=== PATIENT | male | born 1970 | race Caucasian/White ===

== ENCOUNTER 2017-09-06 11:05 | Emergency (ER) | payer OTHER ==
[~2017-09-06] VITALS: Ht 175.3 cm; Wt 79.8 kg
[~2017-09-06 11:05] MED LIST: ADD/10 PO; EFFSR75 PO; LTHSR/300 PO; OXCA600T PO
[2017-09-06 11:06] VITALS: Ht 175.3 cm; Wt 79.8 kg
[2017-09-06] MEDS ORDERED: MoRPHine SULFATE 10 MG/ML CARP/VIAL IV STA (11:50)
[2017-09-06] MEDS ORDERED: DIPHTHERIA/TETANUS/PERTUSSIS 0.5 ML SYR/VIAL IM. ONE (12:00)
[2017-09-06] MEDS ORDERED: CEFTRIAXONE SOD INJ 1 GM ADDVIAL IV STA (12:04)
[2017-09-06 12:15] LABS: BASO % 0.2 %; BASO ABS # 0.02 K/uL (0-0.2); EOS % 0.7 %; EOS ABS # 0.08 K/uL (0-0.5); HEMATOCRIT 41.2 % (42-52); HEMOGLOBIN 15.1 g/dL (14.0-18.0); IG# 0.03 K/uL (0.00-0.02); LYMPH % 22.8 %; LYMPH ABS # 2.51 K/uL (1.2-3.4); MEAN CELL VOLUME 94.1 fL (80-100); MEAN CORPUSCULAR HEMOGLOBIN 34.5 pg (25-34); MEAN CORPUSCULAR HGB CONC 36.7 g/dl (32-36); MEAN PLATELET VOLUME 9.4 fL (7.4-10.4); MONO % 8.9 %; MONO ABS # 0.98 K/uL (0.11-0.59); NEUT % 67.1 %; NEUT ABS # 7.39 K/uL (1.4-6.5); PLATELET COUNT 217 K/uL (130-400); RED CELL DISTRIBUTION WIDTH CV 12.4 % (11.5-14.5); RED CELL DISTRIBUTION WIDTH SD 42.3 fL (36.4-46.3); WHITE BLOOD COUNT 11.01 K/uL (4.8-10.8)
--- NOTE | 2017-09-06 12:18 | DIAGNOSTIC IMAGING REPORT ---
CHEST ONE VIEW PORTABLE HISTORY: pre-op COMPARISON: None. FINDINGS: The lungs are clear. Cardiac silhouette is normal in size. No pleural effusions. No pneumothorax. IMPRESSION: No acute process. Electronically signed by: Dario Castaneda M.D. 09/06/2017 12:16 PM Dictated Date/Time: 09/06/2017 12:14 PM
[2017-09-06 12:33] LABS: ALBUMIN 3.9 gm/dl (3.4-5.0); CALCIUM 8.6 mg/dl (8.5-10.1); POTASSIUM 3.8 mmol/L (3.5-5.1)
[2017-09-06 12:36] LABS: TOTAL PROTEIN 6.9 gm/dl (6.4-8.2)
[2017-09-06 13:06] LABS: PTT PATIENT 23.5 SECONDS (21.0-31.0)
[2017-09-06] MEDS ORDERED: AMPH20TA2 PO (13:06)
--- NOTE | 2017-09-06 13:56 | EMERGENCY ROOM VISIT NOTE ---
History First contact with patient: 11:32 Chief Complaint: LACERATION/CUT (SUT/DERMABOND) Stated Complaint: SEVERE LACERATION OF LEFT TESTICLE Nursing Triage Summary: Patient states "I slipped on the back of my truck and lacerated my left testicle." History of Present Illness The patient is a 46 year old male who presents to the Emergency Room with complaints of a scrotal laceration with exposed left testicle. The patient states he was working in the back of his truck this morning approximately between 6 and 7 AM, when he slipped and fell, landing on a piece of metal wire, which lacerated his scrotum. He denies any head injury, but believes he did pass out due to pain and when visualizing the injury. The patient states around 10:30, he was able to call his father to bring him to the hospital. He denies CINTRON, lightheadedness, dizziness, nausea, or head injury. He denies hematuria or changes in urination. He denies any sensations of burning, numbness, or tingling. He states the bleeding was relatively minimal, and he was able to successfully stop the bleeding with a washcloth. The patient denies obvious testicular lacerations, but states he has been trying to avoid looking at the injury. Tetanus vaccination is not up to date. Review of Systems A complete 10 point review of systems was reviewed with the patient with pertinent positives and negatives as per history of present illness. All else were negative. Past Medical/Surgical History Medical Problems: (1) Bipolar 1 disorder Surgical Problems: (1) Previous back surgery Family History Hypertension Social History Smoking Status: Current Some Day Smoker Alcohol Use: none Drug Use: none Marital Status: single, in relationship Housing Status: lives with family Occupation Status: employed Current/Historical Medications Scheduled Amphetamine-Dextroamphetamine 20MG (Adderall 20MG), 20 MG PO BID [place] Carbonate (Harvey Carbonate), 300 MG PO BID Oxcarbazepine (Oxcarbazepine), 600 MG PO BID Venlafaxine Hcl (Effexor Extended Rel), 75 MG PO BID Physical Exam Vital Signs Date Time Temp Pulse Resp B/P (MAP) Pulse Ox O2 Delivery O2 Flow Rate FiO2 09/06/17 16:25 37 65 18 128/82 (97) 97 Room Air 09/06/17 15:53 70 16 118/67 95 Room Air 09/06/17 14:33 67 18 115/76 97 Room Air 09/06/17 13:00 67 16 123/77 95 Room Air 09/06/17 11:06 36.5 79 18 135/90 97 Room Air Physical Exam VITALS: Vitals are noted on the nurse's note and reviewed by myself. Vital signs stable. GENERAL: This is a 46-year-old white male, in no acute distress, nondiaphoretic , well-developed well-nourished. SKIN: The skin was without rashes, erythema, edema, or bruising. There is no tenting of the skin. Capillary reflex less than 2 seconds. HEAD: Normocephalic atraumatic. EARS: External auditory canals clear, tympanic membranes pearly sawant without erythema or effusion bilaterally. EYES: Pupils equal round and reactive to light and accommodation. Conjunctivae without injection, sclerae without icterus. Extraocular movements intact. NOSE: Patent, turbinates without inflammation or discharge. No sinus tenderness. MOUTH: Mucous membranes moist. Tonsils are not enlarged. Pharynx without erythema or exudate. Uvula midline. Airway patent. Tongue does not deviate. NECK: Supple without nuchal rigidity. No lymphadenopathy. No thyromegaly. Cervical spine is nontender. No JVD. HEART: Regular rate and rhythm without murmurs gallops or rubs. LUNGS: Clear to auscultation bilaterally without wheezes, rales or rhonchi. No dullness to percussion. No retractions or accessory muscle use. ABDOMEN: Positive bowel sounds x 4. Normal tympanic percussion. Soft, nontender, without masses or organomegaly. Call sign negative. No guarding or rebound tenderness. : Avulsion type laceration noted of the left scrotum with exposed left testicle. Minimal tenderness on examination. No abnormality or tenderness on palpation of the right testicle. MUSCULOSKELETAL: No muscle atrophy, erythema, or edema noted. Full range of motion without joint tenderness in all extremities. No tenderness to palpation. Normal gait. Strength 5/5 throughout. NEURO: Patient was alert and oriented to person place and time. Cerebellar function in tact. Normal sensation to light and sharp touch. Deep tendon reflexes 2+ throughout. No focal neurological deficits. Medical Decision & Procedures ER Provider Diagnostic Interpretation: CHEST ONE VIEW PORTABLE HISTORY: pre-op COMPARISON: None. FINDINGS: The lungs are clear. Cardiac silhouette is normal in size. No pleural effusions. No pneumothorax. IMPRESSION: No acute process. Electronically signed by: Dario Castaneda M.D. 09/06/2017 12:16 PM Dictated Date/Time: 09/06/2017 12:14 PM Laboratory Results 09/06/17 12:06 Red Blood Count 4.38, Mean Corpuscular Volume 94.1, Mean Corpuscular Hemoglobin 34.5, Mean Corpuscular Hemoglobin Concent 36.7, Mean Platelet Volume 9.4, Neutrophils (%) (Auto) 67.1, Lymphocytes (%) (Auto) 22.8, Monocytes (%) (Auto) 8.9, Eosinophils (%) (Auto) 0.7, Basophils (%) (Auto) 0.2, Neutrophils # (Auto) 7.39, Lymphocytes # (Auto) 2.51, Monocytes # (Auto) 0.98, Eosinophils # (Auto) 0.08, Basophils # (Auto) 0.02 09/06/17 12:06 Test 09/06/17 12:06 09/06/17 12:35 White Blood Count 11.01 K/uL (4.8-10.8) Red Blood Count 4.38 M/uL (4.7-6.1) Hemoglobin 15.1 g/dL (14.0-18.0) Hematocrit 41.2 % (42-52) Mean Corpuscular Volume 94.1 fL (80-100) Mean Corpuscular Hemoglobin 34.5 pg (25-34) Mean Corpuscular Hemoglobin Concent 36.7 g/dl (32-36) Platelet Count 217 K/uL (130-400) Mean Platelet Volume 9.4 fL (7.4-10.4) Neutrophils (%) (Auto) 67.1 % Lymphocytes (%) (Auto) 22.8 % Monocytes (%) (Auto) 8.9 % Eosinophils (%) (Auto) 0.7 % Basophils (%) (Auto) 0.2 % Neutrophils # (Auto) 7.39 K/uL (1.4-6.5) Lymphocytes # (Auto) 2.51 K/uL (1.2-3.4) Monocytes # (Auto) 0.98 K/uL (0.11-0.59) Eosinophils # (Auto) 0.08 K/uL (0-0.5) Basophils # (Auto) 0.02 K/uL (0-0.2) RDW Standard Deviation 42.3 fL (36.4-46.3) RDW Coefficient of Variation 12.4 % (11.5-14.5) Immature Granulocyte % (Auto) 0.3 % Immature Granulocyte # (Auto) 0.03 K/uL (0.00-0.02) Anion Gap 9.0 mmol/L (3-11) Est Creatinine Clear Calc Drug Dose 90.4 ml/min Estimated GFR () 102.7 Estimated GFR (Non- 88.6 BUN/Creatinine Ratio 14.3 (10-20) Calcium Level 8.6 mg/dl (8.5-10.1) Total Bilirubin 0.5 mg/dl (0.2-1) Aspartate Amino Transf (AST/SGOT) 33 U/L (15-37) Alanine Aminotransferase (ALT/SGPT) 53 U/L (12-78) Alkaline Phosphatase 89 U/L (45-117) Total Protein 6.9 gm/dl (6.4-8.2) Albumin 3.9 gm/dl (3.4-5.0) Globulin 3.0 gm/dl (2.5-4.0) Albumin/Globulin Ratio 1.3 (0.9-2) Prothrombin Time 10.0 SECONDS (9.0-12.0) Prothromb Time International Ratio 1.0 (0.9-1.1) Activated Partial Thromboplast Time 23.5 SECONDS (21.0-31.0) Partial Thromboplastin Ratio 0.9 Medications Administered Medications (Trade) Dose Ordered Sig/Maryellen Route Start Time Stop Time Status Last Admin Dose Admin Diphtheria/ Pertussis/Tetanus Vacc (Adacel Inj) 0.5 ml ONCE ONCE IM. 09/06/17 12:00 09/06/17 12:01 DC 09/06/17 12:19 0.5 ML Morphine Sulfate (MoRPHine SULFATE INJ) 8 mg NOW STAT IV 09/06/17 11:50 09/06/17 11:52 DC 09/06/17 12:11 8 MG Ceftriaxone Sodium (Rocephin Inj) 1 gm NOW STAT IV 09/06/17 12:04 09/06/17 12:07 DC 09/06/17 12:11 1 GM Morphine Sulfate (MoRPHine SULFATE INJ) 4 mg Q15M PRN IV 09/06/17 14:30 09/20/17 14:29 09/06/17 15:55 4 MG Sodium Chloride 1,000 ml @ 250 mls/hr Q4H STAT IV 09/06/17 15:17 09/06/17 19:16 09/06/17 15:17 250 MLS/HR ECG Per My Interpretation Indication: other (pre-op) Rate (beats per minute): 69 Rhythm: normal sinus Findings: no acute ischemic change, no ectopy Comparison ECG Date: 11/12/13 Change: no significant change ED Course The patient was seen and evaluated as above. IV access obtained, labs drawn. The patient was given 8 mg morphine IV to help with pain. He was given 1 g Rocephin IV for infection. I consulted with Shireen Mayorga, Urology, regarding the patient condition. EKG performed. This was interpreted by myself. Preop chest x-ray performed. This was reviewed by myself and radiologist as above. I reevaluated the patient and he is feeling much better. The patient was seen by Shireen Mayorga. Please see her dictation. The patient did request more pain medication. He was given 4 mg morphine IV. The patient was reassessed and is feeling better. I re-paged Shireen Mayorga to discuss the plan of care of the patient. IV fluids initiated at a rate of 250 ML per hour. The patient was taken to the OR. Please see Dr. Lewis's dictation regarding further management and care. Medical Decision This is a 46-year-old white male patient presents to the emergency department today complaining of a scrotal laceration with exposed left testicle. The patient states he slipped while working in his truck, and lacerated the scrotum with a metal wire. He states this occurred several hours prior to arrival, however he was unable to get a hold of his father until just recently. The patient denies any previous injuries. There are no urological symptoms at this time. He denies any numbness or weakness. He is in a significant amount of pain on arrival. Upon initial examination, the patient has an avulsion type laceration of the skin of the scrotum with an exposed left testicle. I immediately ordered preoperative labs, EKG, and chest x-ray, and did consult with urology. The patient will be taken by urology to the operating room this evening for surgical repair of the laceration and washout of the testicle. Preop labs, chest x-ray, and EKG were without significant abnormalities. Please see urology's dictation regarding further management and care. Differential diagnosis includes closed head injury, concussion, laceration, testicular laceration, contusion, tendon or ligament injury, neurovascular compromise, foreign body, assault, and others The chart was completed utilizing [employer] Speech voice recognition software. Grammatical errors, random word insertions, pronoun errors, and incomplete sentences are an occasional consequence of this system due to software limitations, ambient noise, and hardware issues. Any formal questions or concerns about the content, text, or information contained within the body of this dictation should be directly addressed to the provider for clarification. Medication Reconcilliation Current Medication List: was personally reviewed by me Blood Pressure Screening Patient's blood pressure: Normal blood pressure Consults Time Called: 1200 Consulting Physician: Conrado Lewis (Shireen Mayorga) Returned Call: 1202 Advised of patient condition. She advised that she would be down to see the patient after discussing the case with Dr. Lewis. Approximately 1330, the patient was evaluated by specialist. The patient informed RN that he was told he would be going to the OR at 1730. I did not receive an update from the provider. 1510 - re-paged Shireen Mayorga. She responded and informed me that the plan is for the patient to be discharged after surgical repair in the OR. She was placing pre-op orders at this time. Impression Primary Impression: Laceration of scrotum and testes, complicated Departure Information Dispostion Being Evaluated By Surgeon Delfino Bruno M.D. (MEDICAL) (PCP) Patient Instructions My [facility] Problem Qualifiers Primary Impression: Laceration of scrotum and testes, complicated Encounter type: initial encounter Qualified Codes: S31.31XA - Laceration without foreign body of scrotum and testes, initial encounter
--- NOTE | 2017-09-06 14:20 | Urology Consultation ---
History General Date of Service: Sep 06, 2017. Chief Complaint: scrotral trauma Primary Care Physician: Delfino Farrell M.D. (MEDICAL) Pt seen a urologist before?: No History of Present Illness 46 yo male presents to [facility] for scrotal trauma. He reports he fell off the back of his truck earlier this morning and sliced open his scrotum. Currently his pain is controlled. Denies n/v. H&H stable. No active bleeding. Laboratory Last 24 Hours Test 09/06/17 12:06 09/06/17 12:35 White Blood Count 11.01 K/uL Red Blood Count 4.38 M/uL Hemoglobin 15.1 g/dL Hematocrit 41.2 % Mean Corpuscular Volume 94.1 fL Mean Corpuscular Hemoglobin 34.5 pg Mean Corpuscular Hemoglobin Concent 36.7 g/dl Platelet Count 217 K/uL Mean Platelet Volume 9.4 fL Neutrophils (%) (Auto) 67.1 % Lymphocytes (%) (Auto) 22.8 % Monocytes (%) (Auto) 8.9 % Eosinophils (%) (Auto) 0.7 % Basophils (%) (Auto) 0.2 % Neutrophils # (Auto) 7.39 K/uL Lymphocytes # (Auto) 2.51 K/uL Monocytes # (Auto) 0.98 K/uL Eosinophils # (Auto) 0.08 K/uL Basophils # (Auto) 0.02 K/uL RDW Standard Deviation 42.3 fL RDW Coefficient of Variation 12.4 % Immature Granulocyte % (Auto) 0.3 % Immature Granulocyte # (Auto) 0.03 K/uL Sodium Level 139 mmol/L Potassium Level 3.8 mmol/L Chloride Level 107 mmol/L Carbon Dioxide Level 23 mmol/L Anion Gap 9.0 mmol/L Blood Urea Nitrogen 14 mg/dl Creatinine 1.00 mg/dl Est Creatinine Clear Calc Drug Dose 90.4 ml/min Estimated GFR () 102.7 Estimated GFR (Non- 88.6 BUN/Creatinine Ratio 14.3 Random Glucose 90 mg/dl Calcium Level 8.6 mg/dl Total Bilirubin 0.5 mg/dl Aspartate Amino Transf (AST/SGOT) 33 U/L Alanine Aminotransferase (ALT/SGPT) 53 U/L Alkaline Phosphatase 89 U/L Total Protein 6.9 gm/dl Albumin 3.9 gm/dl Globulin 3.0 gm/dl Albumin/Globulin Ratio 1.3 Prothrombin Time 10.0 SECONDS Prothromb Time International Ratio 1.0 Activated Partial Thromboplast Time 23.5 SECONDS Partial Thromboplastin Ratio 0.9 Problem List Medical Problems: (1) Laceration of scrotum and testes, complicated Status: Acute Past History bipolar disorder, other (hx of spinal fracture and paralysis-now improved ) Past Surgical History: spinal surgery Family History Hypertension Social History Hx Tobacco Use In Past Year?: Yes Smoking: less than 1 pack/day (pt reports smoking 1 pack every 3 days) Marital status: single, in relationship Housing status: lives with family Occupation status: employed History of MDRO No Allergies Coded Allergies: No Known Allergies (Unverified , 09/06/17) Medications Home Medications: Home Meds and Scripts Medications Dose Route/Sig Max Daily Dose Days Date Category Adderall 20MG (Amphetamine-Dextroamphetamine 20MG) 1 Tab Tab 20 Mg PO BID 09/06/17 Reported [place] Carbonate 300 Mg Cap 300 Mg PO BID 07/03/13 Reported Oxcarbazepine 600 Mg Tab 600 Mg PO BID 07/03/13 Reported Effexor Extended Rel (Venlafaxine Hcl) 75 Mg Capcr 75 Mg PO BID 04/18/12 Reported Inpatient Medications: Current Inpatient Medications Medications (Trade) Dose Ordered Sig/Maryellen Route Start Time Stop Time Status Last Admin Dose Admin Cefazolin Sodium 2000 mg/Dextrose 65 ml @ 100 mls/hr ONE ONCE IV 09/06/17 16:30 09/06/17 17:08 UNV Review of Systems Review of Systems Constitutional: No fever, No chills Eyes: No double vision Neurological: No dizzy Endocrine: No excessive thirst Gastrointestinal: No abdominal pain, No nausea, No vomiting Cardiovascular: No chest pain Respiratory: No shortness of breath Skin: No rash Musculoskeletal: No back pain Blood / Lymphatic: No bleed easily Male : No painful urination, No blood in urine Physical Exam Vital Signs: Vital Signs Past 12 Hours Date Time Temp Pulse Resp B/P (MAP) Pulse Ox O2 Delivery O2 Flow Rate FiO2 09/06/17 13:00 67 16 123/77 95 Room Air 09/06/17 11:06 36.5 79 18 135/90 97 Room Air Physical Exam: General Appearance: no apparent distress Eyes: bilateral eyes normal inspection ENT: hearing grossly normal Neck: no JVD Respiratory/Chest: lungs clear, normal breath sounds, no respiratory distress, no accessory muscle use Cardiovascular: regular rate, rhythm, no JVD Gastrointestinal: Abdomen: pertinent finding (soft, non-tender, bowel sounds present all 4 quadrants) Genitourinary - Male: Penis: normal penis, circumcised Scrotum: pertinent finding (Degloving of the left testicle noted. Tunica vaginalis is intact.) Extremities: normal inspection Neurologic/Psychiatric: alert, normal mood/affect, oriented x 3 Skin: normal color Assessment & Plan Assessment & Plan A/P: Scrotal trauma AFVSS. Degloving of the left testicle noted on exam; tunica vaginalis is intact. Will proceed to the OR later this afternoon with Dr. Lewis for irrigation of the wound and closure. Risks and benefits of the procedure discussed with the pt. All questions answered. Pt agrees to the procedure at this time. Chest x-ray and EKG have been obtained. The pt last ate last evening, and has not drank anything but a small amount of water around 6-7am this morning. He will be made NPO. Will order Ancef 2gm for pre-op abx. Plan for d/c home after surgery. F/u for drain removal in 1 week. F/u with Dr. Lewis in 2 weeks. Will arrange. Thanks for the consult.
[2017-09-06] MEDS: MoRPHine SULFATE 4 MG/ML 1 ML CARP\\VIAL IV PRN ×2 (14:33→15:55)
[2017-09-06] MEDS ORDERED: SODIUM CHLORIDE 0.9% 1000ML 1,000 ML IV STA (15:17)
[2017-09-06 15:53] VITALS: O2SAT 95
[2017-09-06] MEDS ORDERED: CEFAZOLIN 2000MG IV PUSH 15 ML IV SCH (16:30)
[2017-09-06] MEDS ORDERED: ONDANSETRON INJ 2 MG/ML 2 ML VIAL ONE (16:57)
[2017-09-06] MEDS ORDERED: MIDAZOLAM HCL 1 MG/ML 2ML VIAL ONE (16:57)
[2017-09-06] MEDS ORDERED: LIDOCAINE HCL 2% 2 ML VIAL (20MG/ML) ONE (16:57)
[2017-09-06] MEDS ORDERED: PROPOFOL IV EMULSION 10 MG/ML 20 ML VIAL IV ONE (16:57)
[2017-09-06] MEDS ORDERED: FENTANYL CITRATE INJ 50 MCG/1 ML 2 ML VIAL ONE (16:58)
[2017-09-06] MEDS ORDERED: CEFAZOLIN SOD 2000MG/15 ML IV PUSH IV ONE (17:14)
[2017-09-06] MEDS ORDERED: BACITRACIN OINT 15 GM TUBE ONE (17:17)
[2017-09-06] MEDS ORDERED: BACITRACIN 50000 UNIT VIAL ONE (17:17)
[2017-09-06] MEDS ORDERED: BUPIVACAINE 0.5 % 5 MG/1 ML MPF 30ML VIAL ONE (17:17)
--- NOTE | 2017-09-06 18:03 | [facility] Post Operative Brief Note ---
Immediate Operative Summary Operative Date Sep 06, 2017. Pre-Operative Diagnosis Scrotal Trauma Post-Operative Diagnosis Scrotal Trauma Procedure(s) Performed Scrotal debridement, wound irrigation, scrotal reconstruction Surgeon Dr. Sharon Lewis Demi Chef Surgeon(s) NA Estimated Blood Loss 5cc Findings Consistent with Post-Op Diagnosis Specimens A. Scrotal skin edges Drains 1/4 inch Edouard Anesthesia Type General Complication(s) none Disposition Accompanied Pt To Recover: no Disposition: Recovery Room / PACU
[2017-09-06] MEDS ORDERED: CEPH500C2 PO (18:10)
[2017-09-06] MEDS ORDERED: DOCU-94 PO (18:10)
[2017-09-06] MEDS ORDERED: OXYC-57 PO (18:10)
[2017-09-06] MEDS ORDERED: BACI500O11 TOP (18:10)
--- NOTE | 2017-09-06 18:17 | Discharge Instructions ---
Discharge Instructions Date of Service Sep 06, 2017. Admission Reason for Admission: Severe Laceration Of Left Testicle Discharge Discharge Diagnosis / Problem: Same s/p irrigation, debridement and reconstruction Discharge Goals Goal(s): Improve function, Improve disease control, Therapeutic intervention Activity Recommendations Activity Limitations: as noted below Lifting Limitations: no more than 25 pounds, gradually increase as tolerated ( over 1 week) Exercise/Sports Limitations: rest today, gradually increase as tolerated (over 1 week) May Resume Sexual Activity: after follow-up appointment Shower/Bathe: tomorrow (OK to shower, no tub bath) Driving or Machine Use: resume 3 days after discharge . Instructions / Follow-Up Instructions / Follow-Up Ice pack to scrotum on and off x 48 hours. Scrotal support with gauze until drain removed. Bacitracin ointment to incision two or three times a day. Drain removal in 1 week, wound check in 2 weeks - call [phone] for appointment. Current Hospital Diet Patient's current hospital diet: Discharge Diet Recommended Diet: Regular Diet (good fluid intake) Procedures Procedures Performed: Scrotal debridement, wound irrigation, scrotal reconstruction Pending Studies Studies pending at discharge: yes List of pending studies: Pathology check Medical Emergencies . Who to Call and When: Medical Emergencies: If at any time you feel your situation is an emergency, please call 911 immediately. . Non-Emergent Contact Non-Emergency issues call your: Urologist Call Non-Emergent contact if: you have a fever, temperature is above 101, your pain is not controlled, your pain is worsening, your pain is unusual for you, your pain is concerning you, wound has increased drainage, wound has increased redness, wound has increased pain, you have any medication questions . . "Provider Documentation" section prepared by Conrado Lewis. . [place] Drug Monitoring Program Search Results: patient reviewed within database, see additional documentation (regular Rx from PMD for dextroamphetamine, no narcotics)
--- NOTE | 2017-09-06 18:23 | [facility] Operative Report ---
Operative Report Operative Date Sep 06, 2017. Pre-Operative Diagnosis Scrotal Trauma Post-Operative Diagnosis Scrotal Trauma Procedure(s) Performed Scrotal debridement, wound irrigation, scrotal reconstruction Surgeon Dr. Sharon Lewis Toe Stripper Surgeon(s) MY Estimated Blood Loss 5 cc Findings Wound edges debrided, generous irrigation with no foreign bodies noted, edges closed with good cosmesis. Specimens A. Scrotal skin edges Drains 1/4 inch Kimberly Anesthesia Type General Complication(s) none Disposition no Recovery Room / PACU Indications 38-year-old male seen in the emergency room by our service for acute fall with left-sided scrotal laceration. Please see consultation for further details. Covered preoperatively with Rocephin and additional dose of Ancef was provided preoperative for coverage. SCDs used for DVT prophylaxis. Patient to the OR for exploration, debridement and closure. Consent reviewed with the patient preoperatively. Description of Procedure Patient was properly identified and brought into the operative suite after identification for proper consent of the chart. General anesthesia with laryngeal mask was initiated and patient was prepped and draped in the standard fashion for this procedure. Full timeout procedure was followed. Careful examination under anesthesia demonstrated that the tunica vaginalis was intact circumferentially on the left-hand side. No hematocele or evidence of testicular trauma was appreciated. A degloving laceration of the left-sided scrotum was noted with no gross contamination or debris. Exploration of the testis within the tunica vaginalis was not undertaken to avoid contamination and seen the lack of any evident trauma. Generous wound irrigation with greater than a liter was undertaken again with no foreign bodies or significant debris being appreciated. Tunica vaginalis was freed within the scrotum and 1/ 4 inch Kimberly drain was placed posterior to the testicle through a separate stab incision. This was secured in place using a 2-0 silk suture. Skin edges were necrosis and trauma was evident were debrided and sent for pathologic analysis. Wound was closed in 2 layers using interrupted 2-0 Vicryl suture on the deep layers and interrupted 2-0 and 3-0 chromic vertical mattress sutures and interrupted sutures at the level of the skin. Care was taken to avoid closing the incision too tight should drainage be necessary. After completion excellent cosmesis was appreciated with good hemostasis. No residual necrotic tissue was noted. Scrotal support with fluffs and bacitracin over the incision were placed. Anesthesia was reversed and patient was transferred to the recovery room in stable condition. Follow-up care: Patient to be discharged home with a prescription for Percocet, Colace, bacitracin and Keflex 10 days. Outpatient appointments will be arranged, contact information provided. Care is discussed with the patient's parents per his request preoperatively. Patient is instructed to contact our service should he note any fevers, chills, nausea, vomiting or other difficulties in the postoperative period. I attest to the content of the Intraoperative Record and any orders documented therein. Any exceptions are noted below.
[2017-09-06] MEDS ORDERED: PROMETHAZINE HCL INJ 12.5 MG in SODIUM CHLORIDE 0.9% 50ML 50 ML IV PRN (18:30)
[2017-09-06] MEDS ORDERED: ATROPINE SULFATE 0.1 MG/ML 5ML SYR IV PRN (18:30)
[2017-09-06] MEDS ORDERED: FLUMAZENIL 0.1 MG/1 ML 10 ML VIAL IV PRN (18:30)
[2017-09-06] MEDS ORDERED: LABETALOL HCL IV 5 MG/ML 20ML IV PRN (18:30)
[2017-09-06] MEDS ORDERED: OXYCODONE/ACETAMINOPHEN 5-325 TAB PO PRN ×2 (18:30)
[2017-09-06] MEDS ORDERED: NALOXONE HCL 0.4 MG/1 ML VIAL/CARP IV PRN (18:30)
[2017-09-06] MEDS ORDERED: HYDROmorphone INJ 0.5 MG/0.5 ML SYR IV PRN (18:30)
[2017-09-06] MEDS ORDERED: ONDANSETRON INJ 2 MG/ML 2 ML VIAL IV PRN (18:30)
[2017-09-06] MEDS ORDERED: EpHEDrine SULFATE INJ 50 MG/ML AMP IV PRN (18:30)
--- NOTE | 2017-09-06 18:47 | Anesthesiology Progress Note ---
Anesthesia Post Op Note Date & Time Sep 06, 2017 at 18:47 Vital Signs Pain Intensity: 0 Vital Signs Past 12 Hours Date Time Temp Pulse Resp B/P (MAP) Pulse Ox O2 Delivery O2 Flow Rate FiO2 09/06/17 18:35 36.5 71 16 126/79 98 Room Air 09/06/17 18:25 79 16 132/84 96 Room Air 09/06/17 18:15 76 16 126/72 100 Oxymask 7 09/06/17 18:06 36.5 71 16 122/80 100 Oxymask 7 09/06/17 16:25 37 65 18 128/82 (97) 97 Room Air 09/06/17 15:53 70 16 118/67 95 Room Air 09/06/17 14:33 67 18 115/76 97 Room Air 09/06/17 13:00 67 16 123/77 95 Room Air 09/06/17 11:06 36.5 79 18 135/90 97 Room Air Notes Mental Status: alert / awake / arousable, participated in evaluation Pt Amnestic to Procedure: Yes Nausea / Vomiting: adequately controlled Pain: adequately controlled Airway Patency, RR, SpO2: stable & adequate BP & HR: stable & adequate Hydration State: stable & adequate Anesthetic Complications: no major complications apparent
[2017-09-06 18:48] VITALS: BP 123/79; PULSE 73; TEMP 36.8; O2SAT 95
[2017-09-06 19:20] VITALS: BP 131/89; PULSE 86; TEMP 36.8; O2SAT 96
== END 2017-09-06 16:13 | disposition home or self-care (01) ==
LOC: C.EDB 11:07 → C.EDC 16:13
DX: S31.31XA Laceration without foreign body of scrotum and testes, initial encounter (principal); W01.0XXA Fall on same level from slipping, tripping and stumbling without subsequent striking against object, initial encounter; F17.200 Nicotine dependence, unspecified, uncomplicated; F31.9 Bipolar disorder, unspecified; Z79.899 Other long term (current) drug therapy